=== PATIENT | male | born 1975 | race Caucasian/White ===

== ENCOUNTER 2021-05-31 12:50 | Emergency (ER) | payer BC ==
[2021-05-31] MEDS ORDERED: CEPHALEXIN 500MG STARTER PACK 4 CAP BTL PO STA (16:06)
[2021-05-31] MEDS ORDERED: SULFAMETH-TMP DS STARTER PACK 2 TAB BTL PO STA (16:06)
[2021-05-31] MEDS ORDERED: KETOROLAC 30 MG/ML 1 ML VIAL IM STA (16:07)
--- NOTE | 2021-05-31 16:29 | XR ---
EXAMINATION TYPE: XR finger LT DATE OF EXAM: 05/31/2021 CLINICAL HISTORY: pain TECHNIQUE: Frontal, lateral and oblique images of the left hand are obtained. COMPARISON: None. FINDINGS: There is no acute fracture/dislocation evident. The joint spaces appear within normal limi ts. Soft tissue swelling about the PIP joint. IMPRESSION: There is no acute fracture or dislocation. ICD 10 NO FRACTURE, INITIAL EVALUATION
--- NOTE | 2021-05-31 16:42 | ED ---
General Adult HPI - General Chief complaint: Extremity Injury, Upper Stated complaint: possible infection in finger Time Seen by Provider: 05/31/21 15:37 Source: patient Mode of arrival: ambulatory Limitations: no limitations - History of Present Illness Initial comments: 46 year-old male patient presents for left middle finger pain and swelling. States it started two days ago and has been worsening. Patient states the fingernail has turned black. He denies any injury. States he did bite his cuticle before symptoms started. Denies fever or chills. States he did attempt to drain the finger by poking the pad with a glucometer lancet. States nothing came out. He denies any history of diabetes. Denies nausea or vomiting. - Related Data Previous Rx's Medication Instructions Recorded Cephalexin [Keflex] 500 mg PO Q6HR #40 cap 05/31/21 Ibuprofen [Motrin] 600 mg PO Q8HR PRN #30 tab 05/31/21 Sulfamethoxazole/Trimethoprim 1 each PO BID #20 tablet 05/31/21 [Bactrim DS 800-160 mg] Allergies Allergy/AdvReac Type Severity Reaction Status Date / Time No Known Allergies Allergy Verified 05/31/21 14:09 Review of Systems ROS Statement: Those systems with pertinent positive or pertinent negative responses have been documented in the HPI. ROS Other: All systems not noted in ROS Statement are negative. Past Medical History Past Medical History: Cancer Additional Past Medical History / Comment(s): Testicular History of Any Multi-Drug Resistant Organisms: None Reported Additional Past Surgical History / Comment(s): R testicle removal 2010 Past Psychological History: No Psychological Hx Reported Smoking Status: Never smoker Past Alcohol Use History: Occasional Past Drug Use History: None Reported General Exam Limitations: no limitations General appearance: alert, in no apparent distress, other (This is a well- developed, well-nourished adult male in no acute distress.) ENT exam: Present: normal exam, normal oropharynx, mucous membranes moist Respiratory exam: Present: normal lung sounds bilaterally. Absent: respiratory distress, wheezes, rales, rhonchi, stridor Cardiovascular Exam: Present: regular rate, normal rhythm, normal heart sounds. Absent: systolic murmur, diastolic murmur, rubs, gallop, clicks GI/Abdominal exam: Present: soft, normal bowel sounds. Absent: distended, tenderness, guarding, rebound, rigid Extremities exam: Present: full ROM, tenderness (Left middle finger), normal capillary refill, other (There is soft tissue swelling surrounding the left middle finger. There is subungual hematoma noted. Skin is otherwise pink, warm, dry. Cap refill less than 3 seconds. No significant erythema or red streaking.). Absent: normal inspection, pedal edema, joint swelling, calf tenderness Neurological exam: Present: alert, oriented X3, CN II-XII intact Psychiatric exam: Present: normal affect, normal mood Skin exam: Present: warm, dry, intact, normal color. Absent: rash Course Vital Signs 05/31/21 05/31/21 14:09 17:18 Temperature 98.8 F 98.0 F Pulse Rate 86 89 Respiratory 15 20 Rate Blood Pressure 127/76 124/76 O2 Sat by Pulse 100 99 Oximetry Medical Decision Making - Medical Decision Making 46 year-old female patient presents for evaluation of left middle finger swelling and pain. Physical exam did reveal finger swelling, subungual hematoma. Xray negative. I did perform nail trephination, had output of blood purulent material. Patient started on antibiotics keflex and bactrim. He would be discharged to perform warm soaks. Keep the area clean. Follow-up with orthopedics if his symptoms are not improved over the next 3-4 days. Return parameters were discussed in detail. He is agreeable with this plan. He is discussed with my attending Dr. Arguelles. - Radiology Data Radiology results: report reviewed, image reviewed Images of the left middle finger were obtained. No evidence for acute fractures or other abnormalities. Disposition Clinical Impression: Paronychia of left middle finger Disposition: HOME SELF-CARE Condition: Good Instructions (If sedation given, give patient instructions): Paronychia (ED) Additional Instructions: Do not soaks of the finger. 3-4 times per day. Take medications as directed until complete. Follow-up with workforce specialist if symptoms are not improved over the next 3-4 days. Return for any new, worsening, or concerning symptoms. Prescriptions: Sulfamethoxazole/Trimethoprim [Bactrim DS 800-160 mg] 1 each PO BID #20 tablet Cephalexin [Keflex] 500 mg PO Q6HR #40 cap Ibuprofen [Motrin] 600 mg PO Q8HR PRN #30 tab PRN Reason: Pain Is patient prescribed a controlled substance at d/c from ED?: No Referrals: Ren Coy MD [Medical Doctor] - 1-2 days Time of Disposition: 17:11
[2021-05-31] MEDS ORDERED: ACET/COD 300 MG/30 MG STARTER PACK 6 TAB BTL PO STA (17:10)
[2021-05-31 17:19] VITALS: BP 124/76; PULSE 89; RESP 20; TEMP 98
== END 2021-05-31 17:19 | disposition home or self-care (01) ==
LOC: EC 12:50
DX: L03.012 Cellulitis of left finger (principal); Z85.47 Personal history of malignant neoplasm of testis
CPT/HCPCS: 99283; 96372; 11740; 73140; J1885